=== PATIENT | female | born 1960 | race Hispanic/Latino ===

== ENCOUNTER 2021-06-16 20:14 | Inpatient (IN) | payer OTHER ==
[~2021-06-16] VITALS: Ht 162.6 cm; Wt 106.6 kg
[~2021-06-16 20:14] MED LIST: Z.0.MOTRIN800 MG PO
[2021-06-16] MEDS ORDERED: CEFTRIAXONE 1 GM VIAL IV ONE (21:00)
[2021-06-16 21:38] LABS: BASOPHILS # (AUTO) 0.1 (0.0-0.1); BASOPHILS % 0.5 % (0.0-1.0); EOSINOPHILS # (AUTO) 0.1 (0.0-0.4); EOSINOPHILS % 0.3 % (0.0-6.0); HEMATOCRIT 34.4 % (34.2-44.1); HEMOGLOBIN 10.6 g/dL (12.0-16.0); LYMPHOCYTES # (AUTO) 1.3 (1.0-3.2); LYMPHOCYTES % 7.5 % (18.0-39.1); MEAN CORPUSCULAR HEMOGLOBIN 25.5 pg (28-32); MEAN CORPUSCULAR HGB CONC 30.8 g/dL (31-35); MEAN CORPUSCULAR VOLUME 82.9 fL (81-99); MONOCYTES # (AUTO) 0.7 (0.2-0.8); MONOCYTES % 4.2 % (4.4-11.3); NEUTROPHILS % 81.4 % (38.7-80.0); PLATELET COUNT 211 x10e3/uL (140-360); RED BLOOD COUNT 4.15 x10e6/uL (3.6-5.1); RED CELL DISTRIBUTION WIDTH 14.3 % (11.7-14.4)
[2021-06-16 21:55] LABS: ALBUMIN 2.3 g/dL (3.5-5.0); ALBUMIN/GLOBULIN RATIO 0.5 (0.8-2.0); ANION GAP 19.3 mmol/L (8-16); CALCIUM 9.3 mg/dL (8.4-10.2); CREATININE, SERUM 3.27 mg/dL (0.57-1.11)
[2021-06-16 21:58] LABS: POTASSIUM 5.3 mmol/L (3.5-5.1)
[2021-06-16 21:59] LABS: SALICYLATE < 5.0 mg/dL (0-30)
[2021-06-16 22:08] LABS: HYPOCHROMASIA SLIGHT; LYMPHOCYTES % (MANUAL) 7 % (19-48); MONOCYTES % (MANUAL) 6 % (3.4-9.0); NEUTROPHILS % (MANUAL) 86 % (40-74); PLATELET ESTIMATE SLIGHTLY DECREASED; PLATELET MORPHOLOGY COMMENT MOD EDTA CLUMPING; RBC MORPHOLOGY COMMENT NORMAL
[2021-06-16 22:14] LABS: CLARITY,URINE SL CLOUDY (CLEAR); COLOR,URINE AMBER (YELLOW); KETONES,URINE TRACE (NEGATIVE); LEUKOCYTE ESTERASE ,URINE NEGATIVE (NEGATIVE); NITRITE,URINE NEGATIVE (NEGATIVE); PROTEIN,URINE DIPSTICK TRACE (NEGATIVE); URINE UROBILINOGEN 0.2 mg/dL (0.2 - 1)
[2021-06-16 22:15] LABS: AMPHETAMINES SCREEN,URINE NEGATIVE (NEGATIVE); BENZODIAZEPINES SCREEN,URINE POSITIVE (NEGATIVE); PHENCYCLIDINE SCREEN,URINE NEGATIVE (NEGATIVE)
[2021-06-16 22:25] LABS: AMORPHOUS SEDIMENT,URINE MODERATE (FEW); BACTERIA,URINE MANY /HPF; EPITHELIAL CELLS,URINE MODERATE /LPF
[2021-06-16] MEDS ORDERED: SODIUM CHLORIDE 0.9% 1000ML 1,000 ML IV SCH ×2 (22:45→23:45)
[2021-06-16] MEDS: SODIUM CHLORIDE 0.9% 1000ML 1,000 ML IV SCH (23:45)
[2021-06-16] MEDS ORDERED: INSULIN REGULAR, HUMAN 100 UNIT/1 ML IV ONE (23:45)
[2021-06-17] VITALS (9 sets, daily range): BP systolic 91–158; BP diastolic 44–89
[2021-06-17] MEDS ORDERED: DEXTROSE 50% SYRINGE 50 ML IV PRN (01:30)
[2021-06-17 01:53] LABS: ANION GAP 17.2 mmol/L (8-16); CALCIUM 8.6 mg/dL (8.4-10.2); CREATININE, SERUM 2.92 mg/dL (0.57-1.11)
[2021-06-17 01:58] LABS: POTASSIUM 4.2 mmol/L (3.5-5.1)
[2021-06-17] MEDS ORDERED: INSULIN REGULAR, HUMAN 100 UNIT/1 ML IV ONE ×2 (02:30→03:15)
[2021-06-17] MEDS ORDERED: LACTATED RINGER'S 1,000 ML INJ ONE (02:30)
[2021-06-17] MEDS ORDERED: PAROXETINE HCL20 MG (04:18)
[2021-06-17] MEDS ORDERED: ATORVASTATIN CA40 MG (04:18)
[2021-06-17] MEDS ORDERED: MELOXICAM15 MG (04:18)
[2021-06-17] MEDS ORDERED: LOSARTAN POTAS100 MG (04:18)
[2021-06-17] MEDS: SODIUM CHLORIDE 0.9% 1000ML 1,000 ML IV SCH ×3 (06:15→19:45)
[2021-06-17 06:55] LABS: BASOPHILS # (AUTO) 0.1 (0.0-0.1); BASOPHILS % 0.5 % (0.0-1.0); EOSINOPHILS # (AUTO) 0.1 (0.0-0.4); HEMATOCRIT 31.7 % (34.2-44.1); HEMOGLOBIN 9.7 g/dL (12.0-16.0); LYMPHOCYTES % 9.4 % (18.0-39.1); MEAN CORPUSCULAR HEMOGLOBIN 25.1 pg (28-32); MEAN CORPUSCULAR HGB CONC 30.6 g/dL (31-35); MEAN CORPUSCULAR VOLUME 81.9 fL (81-99); MONOCYTES # (AUTO) 0.5 (0.2-0.8); MONOCYTES % 4.6 % (4.4-11.3); NEUTROPHILS # (AUTO) 9.1 (2.1-6.9); NEUTROPHILS % 81.6 % (38.7-80.0); PLATELET COUNT 160 x10e3/uL (140-360); RED BLOOD COUNT 3.87 x10e6/uL (3.6-5.1)
[2021-06-17 07:14] LABS: ANION GAP 17.3 mmol/L (8-16); CALCIUM 8.6 mg/dL (8.4-10.2); CREATININE, SERUM 2.4 mg/dL (0.57-1.11); POTASSIUM 4.3 mmol/L (3.5-5.1)
[2021-06-17] MEDS: INSULIN REGULAR, HUMAN 100 UNIT/1 ML SQ SCH ×4 (07:30→21:00)
[2021-06-17] MEDS ORDERED: CEFEPIME 1 GM in SODIUM CHLORIDE 0.9% 50ML 50 ML IV SCH (09:30)
[2021-06-17] MEDS ORDERED: ONDANSETRON HCL INJ 2MG/ML 2ML 2 MG/ML VIAL IV PRN (09:30)
[2021-06-17] MEDS ORDERED: ACETAMINOPHEN 325 MG TAB PO PRN (09:30)
[2021-06-17] MEDS ORDERED: DOCUSATE SODIUM 100 MG CAP PO PRN ×2 (09:30→11:15)
[2021-06-17 10:10] LABS: CHOL/HDL RATIO 13.4 (3.0-3.6)
[2021-06-17 10:48] LABS: BAND NEUTROPHILS % (MANUAL) 3 %; EOSINOPHILS % (MANUAL) 2 % (0-7); LYMPHOCYTES % (MANUAL) 14 % (19-48); MONOCYTES % (MANUAL) 5 % (3.4-9.0); NEUTROPHILS % (MANUAL) 76 % (40-74)
[2021-06-17 10:49] LABS: PLATELET ESTIMATE ADEQUATE; PLATELET MORPHOLOGY COMMENT NORMAL; RBC MORPHOLOGY COMMENT NORMAL
[2021-06-17] MEDS: INSULIN LISPRO 100 UNIT/1 ML 3ML VIAL SQ SCH ×3 (11:30→21:00)
[2021-06-17] MEDS: PIPERACILLIN/TAZOBACTAM 2.25 GM in SODIUM CHLORIDE 0.9% 50ML 50 ML IV SCH ×2 (11:30→16:42)
[2021-06-17] MEDS: Vancomycin IV 1 GM in SODIUM CHLORIDE 0.9% 250ML 250 ML IV SCH (12:30)
[2021-06-17] MEDS ORDERED: SODIUM CHLORIDE 0.9% 50ML 50 ML ONE (12:31)
[2021-06-17] MEDS ORDERED: POVIDONE IODINE 0.05% 0.05 % ML PO ONE (12:54)
[2021-06-17] MEDS ORDERED: PROPOFOL IV EMULSION 10 MG/ML 20 ML VIAL ONE (12:54)
[2021-06-17] MEDS ORDERED: MIDAZOLAM HCL 2 MG/2 ML VIAL ONE (16:27)
[2021-06-17] MEDS ORDERED: FENTANYL CITRATE/PF 100MCG/2 ML INJ ONE (16:27)
[2021-06-17] MEDS ORDERED: BUPIVACAINE 0.25% 30ML SDV ONE (17:13)
[2021-06-17] MEDS: HYDROCODONE/APAP 5MG-325MG TAB PO PRN (20:00)
[2021-06-17] MEDS: INSULIN GLARGINE 100 UNITS/ML VIAL SQ SCH (21:00)
[2021-06-17] MEDS: ATORVASTATIN 40 MG TAB PO SCH (21:00)
[2021-06-17] MEDS ORDERED: METOPROLOL TARTRATE 25 MG TAB PO ONE (23:15)
[2021-06-18] VITALS (9 sets, daily range): BP systolic 90–171; BP diastolic 47–85
[2021-06-18] MEDS: HYDROCODONE/APAP 5MG-325MG TAB PO PRN ×3 (03:25→14:00)
[2021-06-18] MEDS: SODIUM CHLORIDE 0.9% 1000ML 1,000 ML IV SCH ×3 (05:54→16:15)
[2021-06-18] MEDS: PIPERACILLIN/TAZOBACTAM 2.25 GM in SODIUM CHLORIDE 0.9% 50ML 50 ML IV SCH ×5 (05:55→18:10)
[2021-06-18 06:38] LABS: BASOPHILS # (AUTO) 0.1 (0.0-0.1); BASOPHILS % 0.5 % (0.0-1.0); EOSINOPHILS # (AUTO) 0.1 (0.0-0.4); EOSINOPHILS % 1.5 % (0.0-6.0); HEMOGLOBIN 8.5 g/dL (12.0-16.0); LYMPHOCYTES # (AUTO) 1.4 (1.0-3.2); LYMPHOCYTES % 14.1 % (18.0-39.1); MEAN CORPUSCULAR HEMOGLOBIN 25.3 pg (28-32); MEAN CORPUSCULAR HGB CONC 31.5 g/dL (31-35); MEAN CORPUSCULAR VOLUME 80.4 fL (81-99); MONOCYTES # (AUTO) 0.7 (0.2-0.8); MONOCYTES % 6.8 % (4.4-11.3); NEUTROPHILS # (AUTO) 7.1 (2.1-6.9); NEUTROPHILS % 73.7 % (38.7-80.0); PLATELET COUNT 152 x10e3/uL (140-360); RED BLOOD COUNT 3.36 x10e6/uL (3.6-5.1); RED CELL DISTRIBUTION WIDTH 14.3 % (11.7-14.4)
[2021-06-18 07:03] LABS: ANION GAP 13.2 mmol/L (8-16); CALCIUM 7.7 mg/dL (8.4-10.2); CREATININE, SERUM 1.64 mg/dL (0.57-1.11); POTASSIUM 4.2 mmol/L (3.5-5.1)
[2021-06-18] MEDS: INSULIN REGULAR, HUMAN 100 UNIT/1 ML SQ SCH ×4 (07:30→21:00)
[2021-06-18] MEDS: INSULIN LISPRO 100 UNIT/1 ML 3ML VIAL SQ SCH ×4 (07:30→21:00)
[2021-06-18] MEDS: Vancomycin IV 1 GM in SODIUM CHLORIDE 0.9% 250ML 250 ML IV SCH (08:57)
[2021-06-18] MEDS: PAROXETINE HCL 20 MG TAB PO SCH (08:58)
[2021-06-18] MEDS: NYSTATIN 15 GM POWDER UD BTL TOP SCH ×3 (10:30→21:00)
[2021-06-18] MEDS: FLUCONAZOLE 100 MG TAB PO SCH (10:30)
[2021-06-18] MEDS ORDERED: ONDANSETRON HCL 4 MG ORAL DISINTEGRATING TAB PO PRN (10:45)
[2021-06-18] MEDS: ATORVASTATIN 40 MG TAB PO SCH (21:00)
[2021-06-18] MEDS: INSULIN GLARGINE 100 UNITS/ML VIAL SQ SCH (21:00)
[2021-06-19 00:41] VITALS: BP 132/64
[2021-06-19] MEDS: PIPERACILLIN/TAZOBACTAM 2.25 GM in SODIUM CHLORIDE 0.9% 50ML 50 ML IV SCH ×5 (06:00→19:09)
[2021-06-19] MEDS: SODIUM CHLORIDE 0.9% 1000ML 1,000 ML IV SCH ×4 (06:00→19:09)
[2021-06-19] MEDS: HYDROCODONE/APAP 5MG-325MG TAB PO PRN ×3 (06:15→22:00)
[2021-06-19 07:20] LABS: ANION GAP 16.1 mmol/L (8-16); CALCIUM 8.2 mg/dL (8.4-10.2); CREATININE, SERUM 1.26 mg/dL (0.57-1.11); POTASSIUM 4.1 mmol/L (3.5-5.1)
[2021-06-19] MEDS: INSULIN LISPRO 100 UNIT/1 ML 3ML VIAL SQ SCH ×4 (07:30→21:24)
[2021-06-19] MEDS: INSULIN REGULAR, HUMAN 100 UNIT/1 ML SQ SCH ×4 (07:30→21:26)
[2021-06-19 08:23] VITALS: BP 143/65
[2021-06-19 09:03] VITALS: BP 143/65
[2021-06-19] MEDS: PAROXETINE HCL 20 MG TAB PO SCH (09:39)
[2021-06-19] MEDS: FLUCONAZOLE 100 MG TAB PO SCH (09:39)
[2021-06-19] MEDS: Vancomycin IV 1 GM in SODIUM CHLORIDE 0.9% 250ML 250 ML IV SCH (09:45)
[2021-06-19] MEDS: NYSTATIN 15 GM POWDER UD BTL TOP SCH ×3 (09:49→21:00)
[2021-06-19 11:24] VITALS: BP 171/89
[2021-06-19 16:26] VITALS: BP 145/73
[2021-06-19 20:30] VITALS: BP 143/78
[2021-06-19] MEDS: INSULIN GLARGINE 100 UNITS/ML VIAL SQ SCH (21:25)
[2021-06-20] VITALS (9 sets, daily range): BP systolic 127–172; BP diastolic 63–79
[2021-06-20] MEDS: SODIUM CHLORIDE 0.9% 1000ML 1,000 ML IV SCH ×4 (01:05→21:22)
[2021-06-20] MEDS: HYDROCODONE/APAP 5MG-325MG TAB PO PRN ×3 (04:35→20:38)
[2021-06-20] MEDS: PIPERACILLIN/TAZOBACTAM 2.25 GM in SODIUM CHLORIDE 0.9% 50ML 50 ML IV SCH ×5 (06:16→17:17)
[2021-06-20] MEDS: INSULIN LISPRO 100 UNIT/1 ML 3ML VIAL SQ SCH ×4 (07:30→21:19)
[2021-06-20] MEDS: INSULIN REGULAR, HUMAN 100 UNIT/1 ML SQ SCH ×4 (07:30→21:19)
[2021-06-20 08:56] LABS: BASOPHILS # (AUTO) 0.1 (0.0-0.1); BASOPHILS % 1.3 % (0.0-1.0); EOSINOPHILS # (AUTO) 0.1 (0.0-0.4); EOSINOPHILS % 1.5 % (0.0-6.0); HEMATOCRIT 35.3 % (34.2-44.1); HEMOGLOBIN 10.4 g/dL (12.0-16.0); LYMPHOCYTES # (AUTO) 1.6 (1.0-3.2); LYMPHOCYTES % 22.1 % (18.0-39.1); MEAN CORPUSCULAR HEMOGLOBIN 25.1 pg (28-32); MEAN CORPUSCULAR HGB CONC 29.5 g/dL (31-35); MEAN CORPUSCULAR VOLUME 85.3 fL (81-99); MONOCYTES # (AUTO) 0.5 (0.2-0.8); MONOCYTES % 6.5 % (4.4-11.3); NEUTROPHILS # (AUTO) 4.5 (2.1-6.9); NEUTROPHILS % 62.9 % (38.7-80.0); PLATELET COUNT 210 x10e3/uL (140-360); RED BLOOD COUNT 4.14 x10e6/uL (3.6-5.1); RED CELL DISTRIBUTION WIDTH 15.4 % (11.7-14.4)
[2021-06-20] MEDS: NYSTATIN 15 GM POWDER UD BTL TOP SCH ×3 (09:00→21:22)
[2021-06-20] MEDS: FLUCONAZOLE 100 MG TAB PO SCH (09:00)
[2021-06-20] MEDS: PAROXETINE HCL 20 MG TAB PO SCH (09:00)
[2021-06-20 09:23] LABS: ANION GAP 14.8 mmol/L (8-16); CALCIUM 8.2 mg/dL (8.4-10.2); CREATININE, SERUM 1.19 mg/dL (0.57-1.11); POTASSIUM 3.8 mmol/L (3.5-5.1)
[2021-06-20] MEDS: Vancomycin IV 1 GM in SODIUM CHLORIDE 0.9% 250ML 250 ML IV SCH (10:45)
[2021-06-20] MEDS ORDERED: ALPRAZOLAM 0.5 MG TAB PO PRN (18:30)
[2021-06-20] MEDS: ALPRAZOLAM 0.25 MG TAB PO PRN (18:45)
[2021-06-20] MEDS: INSULIN GLARGINE 100 UNITS/ML VIAL SQ SCH (21:20)
[2021-06-20] MEDS: ATORVASTATIN 40 MG TAB PO SCH ×2 (21:22)
[2021-06-21] VITALS (7 sets, daily range): BP systolic 139–172; BP diastolic 68–100
[2021-06-21] MEDS: PIPERACILLIN/TAZOBACTAM 2.25 GM in SODIUM CHLORIDE 0.9% 50ML 50 ML IV SCH ×4 (03:10→18:05)
[2021-06-21] MEDS: HYDROCODONE/APAP 5MG-325MG TAB PO PRN ×3 (03:10→16:57)
[2021-06-21] MEDS ORDERED: DIFLUCAN100 MG PO (05:56)
[2021-06-21] MEDS ORDERED: KEFLEX125 MG/5 M PO (05:56)
[2021-06-21] MEDS ORDERED: NYAMYC15 GM TOP (05:56)
[2021-06-21] MEDS ORDERED: CLINDAMYCIN HC150 MG PO (05:56)
[2021-06-21] MEDS ORDERED: Insulin Glargine SQ (05:56)
[2021-06-21] MEDS ORDERED: GABAPENTIN100 MG PO (05:57)
[2021-06-21 05:58] LABS: BASOPHILS % 0.6 % (0.0-1.0); EOSINOPHILS # (AUTO) 0.1 (0.0-0.4); EOSINOPHILS % 1.9 % (0.0-6.0); HEMATOCRIT 27.1 % (34.2-44.1); HEMOGLOBIN 8.7 g/dL (12.0-16.0); LYMPHOCYTES # (AUTO) 1.1 (1.0-3.2); LYMPHOCYTES % 21.8 % (18.0-39.1); MEAN CORPUSCULAR HEMOGLOBIN 25.1 pg (28-32); MEAN CORPUSCULAR HGB CONC 32.1 g/dL (31-35); MEAN CORPUSCULAR VOLUME 78.3 fL (81-99); MONOCYTES # (AUTO) 0.5 (0.2-0.8); MONOCYTES % 8.8 % (4.4-11.3); NEUTROPHILS % 58.7 % (38.7-80.0); PLATELET COUNT 146 x10e3/uL (140-360); RED BLOOD COUNT 3.46 x10e6/uL (3.6-5.1); RED CELL DISTRIBUTION WIDTH 14.8 % (11.7-14.4)
[2021-06-21 06:11] LABS: ANION GAP 12.5 mmol/L (8-16); CALCIUM 7.8 mg/dL (8.4-10.2); CREATININE, SERUM 0.93 mg/dL (0.57-1.11); POTASSIUM 3.5 mmol/L (3.5-5.1)
[2021-06-21] MEDS: SODIUM CHLORIDE 0.9% 1000ML 1,000 ML IV SCH ×3 (06:24→21:55)
[2021-06-21] MEDS: INSULIN LISPRO 100 UNIT/1 ML 3ML VIAL SQ SCH ×4 (07:30→21:00)
[2021-06-21] MEDS: INSULIN REGULAR, HUMAN 100 UNIT/1 ML SQ SCH ×4 (07:30→21:00)
[2021-06-21] MEDS: PAROXETINE HCL 20 MG TAB PO SCH (09:00)
[2021-06-21] MEDS: FLUCONAZOLE 100 MG TAB PO SCH (09:00)
[2021-06-21] MEDS: NYSTATIN 15 GM POWDER UD BTL TOP SCH ×3 (10:42→23:27)
[2021-06-21] MEDS: ALPRAZOLAM 0.25 MG TAB PO PRN (21:43)
[2021-06-21] MEDS: ATORVASTATIN 40 MG TAB PO SCH (21:55)
[2021-06-22] VITALS: BP 175/91
[2021-06-22] MEDS: HYDROCODONE/APAP 5MG-325MG TAB PO PRN (01:21)
[2021-06-22] MEDS: INSULIN GLARGINE 100 UNITS/ML VIAL SQ SCH (03:58)
[2021-06-22 04:00] VITALS: BP 163/82
[2021-06-22] MEDS: SODIUM CHLORIDE 0.9% 1000ML 1,000 ML IV SCH ×2 (05:24→06:22)
[2021-06-22] MEDS: PIPERACILLIN/TAZOBACTAM 2.25 GM in SODIUM CHLORIDE 0.9% 50ML 50 ML IV SCH ×3 (06:22)
[2021-06-22] MEDS ORDERED: METOPROLOL TARTRATE 25 MG TAB PO SCH (07:30)
[2021-06-22] MEDS: INSULIN REGULAR, HUMAN 100 UNIT/1 ML SQ SCH (07:30)
[2021-06-22] MEDS: INSULIN LISPRO 100 UNIT/1 ML 3ML VIAL SQ SCH (07:30)
[2021-06-22 08:33] VITALS: BP 144/84
[2021-06-22] MEDS: PAROXETINE HCL 20 MG TAB PO SCH (09:00)
[2021-06-22] MEDS: FLUCONAZOLE 100 MG TAB PO SCH (09:00)
[2021-06-22] MEDS: NYSTATIN 15 GM POWDER UD BTL TOP SCH (09:33)
[2021-06-22 12:37] VITALS: BP 159/84
== END 2021-06-22 16:09 | disposition home or self-care (01) | DRG 300 ==
LOC: ER 20:19 → ERHOLD 23:45 → MED/SURG2 06-17 03:39
PROVIDERS: ADMIT Internal Medicine; ATTEND Internal Medicine
PROC: 0H98XZZ Drainage of Buttock Skin, External Approach (ICD-10-PCS; principal; 2021-06-17 16:00)
DX: E11.52 Type 2 diabetes mellitus with diabetic peripheral angiopathy with gangrene (principal); L02.31 Cutaneous abscess of buttock; K61.2 Anorectal abscess; N39.0 Urinary tract infection, site not specified; Z68.41 Body mass index [BMI] 40.0-44.9, adult; L76.34 Postprocedural seroma of skin and subcutaneous tissue following other procedure; I96 Gangrene, not elsewhere classified; N17.9 Acute kidney failure, unspecified; Z74.09 Other reduced mobility; E66.01 Morbid (severe) obesity due to excess calories; Y83.8 Other surgical procedures as the cause of abnormal reaction of the patient, or of later complication, without mention of misadventure at the time of the procedure; R16.0 Hepatomegaly, not elsewhere classified; B95.61 Methicillin susceptible Staphylococcus aureus infection as the cause of diseases classified elsewhere; Z20.822 Contact with and (suspected) exposure to COVID-19; E78.5 Hyperlipidemia, unspecified
CPT/HCPCS: 36415; 70450; 74176; 76700; 80048; 80053; 80061; 80202; 80307; 80320; 80329; 81001; 82948; 83036; 83605; 85025; 87040; 87071; 87075; 87086; 87186; 87205; 93005; 96361; 97139; 99251; 99284; J0696; J1817; J2250; J2543; J3010; J3370; J7030; J7050; J7121; U0002